=== PATIENT | male | born 1935 | race Caucasian/White ===

== ENCOUNTER 2019-10-02 00:28 | Inpatient (IN) | payer MEDICARE ==
[~2019-10-02] VITALS: Ht 182.8 cm; Wt 63.2 kg
[2019-10-02] MEDS ORDERED: DEPAKOTE SPRIN125 MG PO (00:30)
[2019-10-02] MEDS ORDERED: ARICEPT10 M1 PO (00:31)
[2019-10-02] MEDS ORDERED: CITALOPRAM10 MG PO (00:31)
[2019-10-02] MEDS ORDERED: MELATONIN3 MG PO (00:32)
[2019-10-02] MEDS ORDERED: VITAMIN D325 MCG PO (00:33)
[2019-10-02 01:45] VITALS: BP 113/66
[2019-10-02 06:57] LABS: THYROID STIM HORMONE (HS) 1.96 uIU/ml (0.358-4.75)
[2019-10-02 07:35] LABS: VITAMIN D, 25-HYDROXY 33.5 ng/mL (30-100)
[2019-10-02 07:41] VITALS: BP 133/68
[2019-10-02 20:00] VITALS: BP 127/68
[2019-10-03 07:57] VITALS: BP 130/71
[2019-10-03 19:40] VITALS: BP 130/72
[2019-10-04 07:42] VITALS: BP 132/75
[2019-10-04 20:00] VITALS: BP 128/62
[2019-10-05 07:41] VITALS: BP 125/51
[2019-10-05 19:41] VITALS: BP 120/62
[2019-10-06 07:46] VITALS: BP 134/67
[2019-10-06 20:00] VITALS: BP 132/70
[2019-10-07 08:00] VITALS: BP 150/66
[2019-10-07 20:00] VITALS: BP 148/60
[2019-10-08 07:55] VITALS: BP 146/47
[2019-10-08 20:00] VITALS: BP 138/48
[2019-10-09 07:53] VITALS: BP 125/64
[2019-10-09 20:00] VITALS: BP 120/58
[2019-10-10 08:00] VITALS: BP 131/73
[2019-10-10 20:00] VITALS: BP 142/72
[2019-10-11 07:47] VITALS: BP 126/67
[2019-10-11 19:29] VITALS: BP 126/56
[2019-10-12 07:48] VITALS: BP 146/58
[2019-10-12 19:46] VITALS: BP 139/54
[2019-10-13 07:23] VITALS: BP 143/62
[2019-10-13 19:44] VITALS: BP 138/60
[2019-10-14 07:49] VITALS: BP 123/59
[2019-10-14 20:00] VITALS: BP 122/82
[2019-10-15 08:00] VITALS: BP 114/63
[2019-10-15 20:00] VITALS: BP 118/64
[2019-10-16 07:58] VITALS: BP 130/67
[2019-10-16] MEDS ORDERED: Vitamin D (1,000 UNI PO (09:46)
[2019-10-16] MEDS ORDERED: RIVASTIGMINE1 EAC2 T (09:46)
[2019-10-16] MEDS ORDERED: RISPERIDONE0.5 MG PO (09:46)
[2019-10-16] MEDS ORDERED: MEMANTINE HCL10 MG PO (09:46)
[2019-10-16] MEDS ORDERED: CITALOPRAM20 MG PO (09:46)
== END 2019-10-16 12:30 | disposition home or self-care (01) | DRG 885 ==
LOC: 3N 00:28
PROVIDERS: Nurse Practitioner Women's Health; ADMIT Psychiatry & Neurology Psychiatry
PROC: 0HBRXZZ Excision of Toe Nail, External Approach (ICD-10-PCS; principal; 2019-10-02)
DX: F23 Brief psychotic disorder (principal); F02.81 Dementia in other diseases classified elsewhere, unspecified severity, with behavioral disturbance; F43.21 Adjustment disorder with depressed mood; G30.9 Alzheimer's disease, unspecified; K21.9 Gastro-esophageal reflux disease without esophagitis; E55.9 Vitamin D deficiency, unspecified; G47.00 Insomnia, unspecified; B35.1 Tinea unguium; Z87.891 Personal history of nicotine dependence; Z88.8 Allergy status to other drugs, medicaments and biological substances; Z91.040 Latex allergy status; Z79.899 Other long term (current) drug therapy; Z20.828 Contact with and (suspected) exposure to other viral communicable diseases